=== PATIENT | female | born 1985 | race Caucasian/White ===

== ENCOUNTER 2023-02-02 03:19 | Inpatient (IN) | payer OTHER, SELFPAY ==
[2023-02-02] VITALS (61 sets, daily range): BP systolic 103–136; BP diastolic 58–91; PULSE 55–113; RESP 12–20; TEMP 35.9–36.8; O2SAT 96–100; BMI 36.3
--- NOTE | 2023-02-02 03:19 | LDADM ---
This patient, Maggie Smith, was admitted to Labor/Delivery/Recovery 120 on 02/02/23 at 03:19. Plans for labor, pain management and were discussed with patient. Patient/family oriented to hospital policies and general routines including ID bracelet, bed and alarms, visiting hours, pain management, procedures, bathroom and other care routines, personal items, smoking policy, room service/diet and guest tray routines, infant security routines, and visiting hours. Patient/Family are encouraged to report perceived risks to care and to ask questions if they do not understand what they are told or what they should do. See OBIX for further documentation.
[2023-02-02] MEDS: LACTATED RINGERS 1,000 ML 125 ML IV CONT ×2 (04:15→05:40)
[2023-02-02 04:21] LABS: Glucose Point of Care 93 mg/dl (65-105)
[2023-02-02 04:21] LABS: Basophils Absolute Auto 0.1 K/mm3 (0.0-0.1); Basophils Percent Auto 0.5 % (0.2-1.2); Eosinophils Percent Auto 0.4 % (0-4.4); Hematocrit 35.8 % (37.0-47.0); Hemoglobin 12.1 g/dL (12.0-15.0); Immature Granulocyte Absolute 0.07 K/mm3 (0.00-0.031); Immature Granulocyte Percent A 0.7 % (0-0.5); Lymphocytes Absolute Auto 2.01 K/mm3 (0.9-3.2); Lymphocytes Percent Auto 20.8 % (18.3-44.2); Mean Corpuscular HGB Conc 33.8 g/dl (32-36); Mean Corpuscular Hemoglobin 28.3 pg (26-34); Mean Corpuscular Volume 83.6 fl (80-100); Mean Platelet Volume 10.3 fl (7.4-10.4); Monocytes Absolute Auto 0.8 K/mm3 (0.1-0.6); Neutrophils Absolute Auto 6.7 K/mm3 (1.3-6.7); Neutrophils Percent Auto 69.6 % (45.5-73.1); Platelet Count Result 215 k/mm3 (150-375); Red Blood Count 4.28 M/mm3 (4.2-5.4); Red Cell Distribution Width 14.7 % (11.5-14.5); White Blood Count 9.7 K/mm3 (4.5-10.0)
--- NOTE | 2023-02-02 06:36 | WPDANESEPPF ---
Anes - Initial Pre Proc Eval Procedure: Operation Date: 02/02/23 07:30 Proposed Procedures p Section - Andi Godfrey MD Date/Time: 02/02/23 06:36 Surgeon: Andi Godfrey MD Pre Op Diagnosis: Leaking Fluid Patient Data Age: 37 Gender: F Height: 1.57 m Weight: 90 kg Last Vital Signs Temp 36.4 C L 02/02/23 04:00 Pulse 91 02/02/23 04:01 Resp 16 02/02/23 04:00 BP 133/85 02/02/23 04:01 O2 Del Method Room Air 02/02/23 04:47 Allergies Allergy/AdvReac Type Severity Reaction Status Date / Time No Known Allergies Allergy Unknown Verified 02/02/23 04:50 Home Medications Medication Instructions Recorded Confirmed Type albuterol sulfate 90 mcg/actuation 1 inh inhalation QID PRN Wheezing 01/16/23 01/16/23 History aerosol inhaler prenat.vits,gil,ffu-yzho-nbbsd 1 tablet PO DAILY 01/16/23 01/16/23 History Laboratory Tests 02/02/23 02/02/23 04:14 04:15 WBC 9.7 K/mm3 (4.5-10.0) RBC 4.28 M/mm3 (4.2-5.4) Hgb 12.1 g/dL (12.0-15.0) Hct 35.8 L % (37.0-47.0) MCV 83.6 fl (80-100) MCH 28.3 pg (26-34) MCHC 33.8 g/dl (32-36) RDW 14.7 H % (11.5-14.5) Plt Count 215 k/mm3 (150-375) MPV 10.3 fl (7.4-10.4) Immature Gran % (Auto) 0.7 H % (0-0.5) Neut % (Auto) 69.6 % (45.5-73.1) Lymph % (Auto) 20.8 % (18.3-44.2) [place] % (Auto) 8.0 % (2.6-8.5) Eos % (Auto) 0.4 % (0-4.4) Baso % (Auto) 0.5 % (0.2-1.2) Lymph # (Auto) 2.01 K/mm3 (0.9-3.2) [place] # (Auto) 0.8 H K/mm3 (0.1-0.6) Eos # (Auto) 0.0 K/mm3 (0-0.3) Baso # (Auto) 0.1 K/mm3 (0.0-0.1) Abs Immat Gran (auto) 0.07 H K/mm3 (0.00-0.031) Absolute Neuts (auto) 6.7 K/mm3 (1.3-6.7) Absolute Nucleated RBC 0.0 K/mm3 (0.0-0.012) Nucleated RBC % 0.0 % (0.0-0.2) POC Capillary Glucose 93 mg/dl (65-105) RPR Pending Blood Type A Positive Antibody Screen Negative Patient hx anesthesia problems: none Family hx anesthesia problems: none Results Review: All pre-operative results and documents have been reviewed as part of the pre-operative evaluation. [facility] Past Medical History Medical History (Updated 02/02/23 @ 06:36 by Mayco Gibson MD) Diabetes in Obesity Surgical History Surgical History (Updated 02/02/23 @ 06:36 by Mayco Gibson MD) History of section Family History Family History (Updated 01/16/23 @ 13:50 by Olivia Connor RN) Grandparent Congestive heart failure Mother Diabetes mellitus Son Sudden infant syndrome (SIDS) Social History Social History Smoking status: Former smoker Substance use: never Lack of Transportation: No Lack of Food: Never True Current Housing: I Have Housing Concerned About Future Housing: No Difficulty Paying Gas/Electric Bills: No Difficulty Paying for Meds: No Currently Unemployed: No Education: Don't Know Difficulty w/ Childcare or Family Care: No Spiritual care concerns: No Anes - Eval Final PreProcedure Day of Procedure 02/02/23 06:36 Patient weight: obese Heart: regular rate and rhythm Lungs: clear to auscultation Airway: Mallampati scale class II Neurological: alert and oriented Last oral intake: >/= 8 hours ASA classification: III Emergent: no Anesthetic plan: proceed Anesthesia type and monitoring: regional spinal and standard monitoring Results Review: All pre-operative results and documents have been reviewed as part of the pre-operative evaluation. Informed Consent: The patient's anesthetic plan and its attendant risks and benefits were discussed with the patient/family/POA. Questions were solicited and answers provided to the satisfaction of the patient/family/POA.
--- NOTE | 2023-02-02 07:24 | PM.IMHP ---
H&P: HPI History of Present Illness Date/Time: 02/02/23 07:24 Chief Complaint: Term , rupture of membranes previous Narrative: this patient is a 37-year-old grand multiparous with history of delivery. She has a 38 week gestation. She ruptured membranes early this morning and came to Labor and delivery. We have decided to proceed with . She had 4 . She understands the risk. She understands that injuries may occur that result in hospitalization, more surgery, and severe illness. She understands risk of hemorrhage and infection. Review of Systems Review of Systems: All systems reviewed & are unremarkable except as noted in HPI and below Constitutional: Constitutional: Denies chills, Denies fatigue, Denies fever(s) and Denies weakness Eyes: Eyes: Denies blurry vision, Denies change in vision, Denies loss of peripheral vision, Denies loss of vision, Denies other visual disturbances and Denies eye pain ENT: Denies vertigo, Denies dizziness, Denies hearing loss, Denies mouth pain, Denies nasal obstruction, Denies neck mass and Denies neck pain Cardiovascular: Cardiovascular: Denies chest pain, Denies diaphoresis, Denies syncope, Denies leg edema and Denies dyspnea Respiratory: Respiratory: Denies chest congestion, Denies cough, Denies hemoptysis, Denies dyspnea and Denies wheezing Gastrointestinal: Gastrointestinal: Denies abdominal pain, Denies constipation, Denies diarrhea, Denies nausea and Denies vomiting Genitourinary: Genitourinary: Denies hematuria, Denies change in libido, Denies nocturia, Denies genital lesions, Denies flank pain and Denies urinary urgency Musculoskeletal: Musculoskeletal: Denies abnormal gait, Denies back pain, Denies myalgias, Denies arthralgias, Denies joint swelling, Denies muscle weakness and Denies neck pain Integumentary/Breasts: Skin/Breast: Denies swelling, Denies breast pain, Denies breast mass, Denies dry skin, Denies nipple discharge, Denies unusual bruising and Denies jaundice Neurologic: Denies Neuro-related abnormal movements, Denies Abnormal speech present, Denies abnormal gait, Denies behavioral changes, Denies confusion, Denies vertigo, Denies dizziness, Denies syncope, Denies loss of vision, Denies memory loss, Denies convulsions and Denies weakness Psychiatric: Psychiatric: Denies abnormal sleep pattern, Denies behavioral changes, Denies change in libido, Denies confusion, Denies depression, Denies anhedonia and Denies memory loss Endocrine: Endocrine: Reports no additional endocrine complaints, Denies change in libido and Denies fatigue Hematologic/Lymphatic: Hematologic/Lymphatic: Reports no additional hematologic/lymphatic complaints Allergic/Immunologic: Allergic/Immunologic: Reports no additional allergic/immunologic complaints and Denies wheezing PMFSH Past Medical History Medical History (Updated 02/02/23 @ 07:26 by Andi Godfrey MD) Diabetes in Obesity Surgical History Surgical History (Updated 02/02/23 @ 07:26 by Andi Godfrey MD) History of section Family History Family History (Updated 01/16/23 @ 13:50 by Olivia Connor RN) Grandparent Congestive heart failure Mother Diabetes mellitus Son Sudden syndrome (SIDS) Social History Social History Smoking status: Former smoker Substance use: never Lack of Transportation: No Lack of Food: Never True Current Housing: I Have Housing Concerned About Future Housing: No Difficulty Paying Gas/Electric Bills: No Difficulty Paying for Meds: No Currently Unemployed: No Education: Don't Know Difficulty w/ Childcare or Family Care: No Spiritual care concerns: No Meds Home Medications and Allergies Home Medications Medication Instructions Recorded Confirmed Type albuterol sulfate 90 mcg/actuation 1 inh inhalation QID PRN Wheezing 01/16/23 01/16/23 Hist
[2023-02-02] MEDS: ceFAZolin 2 GM/D5W 50 ML 2 GM/50 ML BAG IVPB (07:35)
--- NOTE | 2023-02-02 08:44 | P.OP_ITS ---
Procedure Note - Detailed Date of Procedure 02/02/23 Pre-op Diagnosis Leaking Fluid, term gestation, previous Post-op Diagnosis Same Procedure Performed Low-transverse section Surgeon Andi Godfrey MD Anesthesia Spinal Indications previous , ruptured membranes, term gestation Findings Normal gestational maternal anatomy, average size , normal Apgars. Description of Procedure The patient was taken the operating room. She was prepped and draped in dorsal supine position with a leftward tilt. This was done after spinal anesthetic was applied. A low-transverse skin incision was made and carried down till of the fascia with the knife. The fascial incision was made with the knife. The fascial incision was extended laterally with Hope scissors. The fascia was tented upward superiorly and inferiorly the rectus muscles were dissected off bluntly. The rectus muscles were the midline. The preperitoneal fat and peritoneum were dissected open bluntly at the superior aspect of the rectus muscles. The peritoneal incision was extended superior and inferior with good position of bladder. The uterine incision was made with a scalpel down to the level of the amniotic cavity. The amniotic cavity was entered bluntly. The infant was delivered. The cord was clamped and cut and the infant was handed off to waiting pediatric staff. Cord bloods were ob tained. The placenta was removed manually. The uterus was exteriorized. The uterus was cleared of all clots, debris and membranes. The uterus was closed in 0 Vicryl running lock fashion. An imbricating over a was placed along the incision line as well. The uterus was returned to the abdomen. The gutters were cleared of all clots and debris. The fascia was closed with 0 Vicryl running fashion. The subcutaneous tissue was irrigated pinpoint bleeders were cauterized. The skin was closed with subcuticular absorbable eduardo. The skin incision line was covered with glue. The patient tolerated the procedure well. She has taken recovery room in stable condition. Sponge lap and needle counts were correct x2. Pathology None sent Complications No immediate complications Condition Stable Disposition PACU
[2023-02-02] MEDS: KETOROLAC 30 MG/ML VIAL (*BKC) IV PUSH (08:45)
[2023-02-02 10:05] LABS: Rapid Plasma Reagin Non-Reactive (NonReactive)
[2023-02-02] MEDS: OXYTOCIN 30 UNITS/NS 500 ML 30 UNITS/500 ML BAG 125 UNITS IV CONT (10:42)
--- NOTE | 2023-02-02 16:06 | OBPPTRN ---
1123 Patient transferred to post room #290 via stretcher. Support person present. Oriented to unit, room, information board, rooming in, admission packet and security measures. Patient verbalizes understanding.
--- NOTE | 2023-02-02 18:32 | PC.NURSE ---
Disregard [id number] charting it was for the wrong time. the correct charting time is 7819
[2023-02-02] MEDS: DOCUSATE SODIUM 100 MG CAPSULE PO (19:46)
[2023-02-03 04:15] VITALS: BP 121/69; PULSE 95; RESP 18; TEMP 37.4; O2SAT 98
[2023-02-03 05:22] LABS: Basophils Absolute Auto 0.1 K/mm3 (0.0-0.1); Basophils Percent Auto 0.5 % (0.2-1.2); Eosinophils Absolute Auto 0.1 K/mm3 (0-0.3); Eosinophils Percent Auto 0.8 % (0-4.4); Hematocrit 29.9 % (37.0-47.0); Hemoglobin 10.1 g/dL (12.0-15.0); Immature Granulocyte Absolute 0.06 K/mm3 (0.00-0.031); Immature Granulocyte Percent A 0.6 % (0-0.5); Lymphocytes Absolute Auto 1.65 K/mm3 (0.9-3.2); Lymphocytes Percent Auto 15.9 % (18.3-44.2); Mean Corpuscular HGB Conc 33.8 g/dl (32-36); Mean Corpuscular Hemoglobin 28.5 pg (26-34); Mean Corpuscular Volume 84.2 fl (80-100); Mean Platelet Volume 10.6 fl (7.4-10.4); Monocytes Absolute Auto 0.9 K/mm3 (0.1-0.6); Monocytes Percent Auto 8.9 % (2.6-8.5); Neutrophils Absolute Auto 7.6 K/mm3 (1.3-6.7); Neutrophils Percent Auto 73.3 % (45.5-73.1); Platelet Count Result 182 k/mm3 (150-375); Red Blood Count 3.55 M/mm3 (4.2-5.4); Red Cell Distribution Width 14.8 % (11.5-14.5); White Blood Count 10.4 K/mm3 (4.5-10.0)
--- NOTE | 2023-02-03 07:48 | WPDANLDNPN2 ---
Anes-Prog Note L&D-Neuraxial Date/Time: 02/03/23 07:48 Neuraxial medications: epidural PF morphine Opiod-related complaints: none Patient feedback: Patient satisfied with post-operative pain management.
--- NOTE | 2023-02-03 07:48 | WPDANLDPN2 ---
Anes-Prog Note L&D Date/Time: 02/03/23 07:48 Comfortable throughout: section Neuraxial method: spinal Epidural/Spinal procedure site: clean & non-tender Neuro status: Neuro function grossly intact. Cardiovascular status: normal Respiratory status: normal Airway patency: baseline Mental status: baseline Post-Op hydration status: normal Vital Signs: Last Vital Signs Temp 99.4 F 02/03/23 04:15 Pulse 95 02/03/23 04:15 Resp 18 02/03/23 04:15 BP 121/69 02/03/23 04:15 Pulse Ox 98 02/03/23 04:15 O2 Del Method Room Air 02/03/23 04:15 Pain score (VAS): 4 I/O: Intake & Output 02/02/23 02/02/23 02/03/23 15:59 23:59 07:59 Intake Total 1700 1540 800 Output Total 1310 1400 1700 Balance 390 140 -900 Post-procedural complaints: none Patient feedback: Patient satisfied with anesthetic care.
[2023-02-03 08:00] VITALS: BP 111/74; PULSE 90; RESP 16; TEMP 37.2; O2SAT 99
[2023-02-03] MEDS: DOCUSATE SODIUM 100 MG CAPSULE PO ×2 (08:34→17:01)
[2023-02-03] MEDS: IBUPROFEN 600 MG TABLET PO ×2 (08:35→17:02)
[2023-02-03] MEDS: MULTIVIT/MIN/PREN/FOL AC/IRON TABLET 1 TAB PO (08:35)
--- NOTE | 2023-02-03 09:18 | PM.GYNPNOP ---
NEW GRAD RN - A/P Postoperative Procedures: Procedures Operation Date: 02/02/23 07:30 Actual Procedure Side Surgeon p Section Andi Godfrey MD Time Spent With Patient Time: Total time spent is greater than 50% in coordination of care (as documented) at patient's floor/unit and/or counseling patient: Time with patient: less than 15 minutes NEW GRAD RN- PN:Felix Post-Op Subjective Date/time seen: 02/03/23 09:18 Exam Const: General: cooperative, healthy appearing, comfortable and no acute distress Resp: Auscultation: no crackles, no rales, no rhonchi and no wheezes Cardio: Rhythm: regular rhythm Heart sounds: no click and no murmurs GI: Inspection: non-distended Auscultation: normal bowel sounds Extrem: General: normal to inspection, no pedal edema and no calf tenderness NEW GRAD RN - PN: Obj Data Vital Signs Vital Signs: Vital Signs - 24 hr 02/02/23 09:20 02/02/23 09:25 02/02/23 09:30 Temperature Pulse Rate Respiratory Rate Blood Pressure Pulse Oximetry 100 100 100 Oxygen Delivery 02/02/23 09:32 02/02/23 09:35 02/02/23 09:40 Temperature Pulse Rate 82 Respiratory Rate Blood Pressure 122/59 L Pulse Oximetry 100 100 Oxygen Delivery 02/02/23 09:45 02/02/23 09:47 02/02/23 09:50 Temperature Pulse Rate 113 H Respiratory Rate Blood Pressure 119/78 Pulse Oximetry 100 100 Oxygen Delivery 02/02/23 09:55 02/02/23 10:00 02/02/23 10:05 Temperature Pulse Rate Respiratory Rate Blood Pressure Pulse Oximetry 100 100 100 Oxygen Delivery 02/02/23 10:10 02/02/23 10:15 02/02/23 10:16 Temperature Pulse Rate 79 Respiratory Rate Blood Pressure 117/67 Pulse Oximetry 99 100 Oxygen Delivery 02/02/23 10:18 02/02/23 10:20 02/02/23 10:25 Temperature Pulse Rate 75 Respiratory Rate Blood Pressure 118/74 Pulse Oximetry 100 100 Oxygen Delivery 02/02/23 10:30 02/02/23 10:31 02/02/23 10:35 Temperature Pulse Rate 70 Respiratory Rate Blood Pressure 110/73 Pulse Oximetry 100 100 Oxygen Delivery 02/02/23 10:40 02/02/23 10:45 02/02/23 10:46 Temperature Pulse Rate 87 Respiratory Rate Blood Pressure 109/91 H Pulse Oximetry 100 99 Oxygen Delivery 02/02/23 10:50 02/02/23 10:55 02/02/23 11:00 Temperature Pulse Rate Respiratory Rate Blood Pressure Pulse Oximetry 100 100 100 Oxygen Delivery 02/02/23 11:02 02/02/23 11:05 02/02/23 11:10 Temperature Pulse Rate 69 Respiratory Rate Blood Pressure 118/76 Pulse Oximetry 100 100 Oxygen Delivery 02/02/23 11:15 02/02/23 11:16 02/02/23 09:19 Temperature 96.9 F L Pulse Rate 57 L 88 Respiratory Rate 20 Blood Pressure 115/68 136/91 H Pulse Oximetry 100 100 Oxygen Delivery Room Air 02/02/23 09:34 02/02/23 09:49 02/02/23 10:04 Temperature 97.2 F L 97.5 F L Pulse Rate 85 81 80 Respiratory Rate 14 17 14 Blood Pressure 122/59 L 122/59 L Pulse Oximetry 100 100 100 Oxygen Delivery Room Air Room Air Room Air 02/02/23 10:19 02/02/23 10:34 02/02/23 10:49 Temperature 97.6 F 97.1 F L Pulse Rate 85 85 81 Respiratory Rate 12 12 Blood Pressure Pulse Oximetry 100 100 100 Oxygen Delivery Room Air Room Air Room Air 02/02/23 11:45 02/02/23 16:32 02/02/23 17:40 Temperature 98.2 F Pulse Rate 58 L Respiratory Rate 16 Blood Pressure 109/75 Pulse Oximetry 99 Oxygen Delivery Room Air Room Air 02/02/23 11:23 02/02/23 20:07 02/02/23 20:07 Temperature 97.6 F Pulse Rate 58 L 88 88 Respiratory Rate 16 18 18 Blood Pressure 114/73 Pulse Oximetry 99 97 97 Oxygen Delivery Room Air Room Air 02/02/23 23:13 02/02/23 23:13 02/03/23 04:15 Temperature 98.3 F Pulse Rate 93 93 95 Respiratory Rate 18 18 18 Blood Pressure 108/61 Pulse Oximetry 96 96 98 Oxygen Delivery Room Air Room Air 02/03/23 04:15 02/03/23 08:00 Temperature 99.4 F 99 F Pulse Rate 9
--- NOTE | 2023-02-03 12:44 | PC.NURSE ---
[id number] Introductions were made, then consulted with patient to assess needs related to . Mother led the conversation with her?plans to feed?her infant and the?experience so far. Resources provided for inpatient services with name written on the white board and using call light. RN encouraged mother to eat her lunch, then unwrap her infant and place upright skin -to-skin. Mother voiced understanding of information and voiced she would call.
--- NOTE | 2023-02-03 14:27 | PC.NURSE ---
[id number] Consulted with patient to assess needs related to after a call requested. Mother led the conversation with her?plans to feed?her infant and the?experience so far. Mother works well with her infant with encouragement and education. Encouraged understanding of the benefits of skin to skin (demonstrating unwrapping and placing upright on her chest), stimulating with massage touch, changing positions to encourage wakefulness, how to watch for early feeding cues, responsive feeding, feeding on demand (aiming for 8-12 times in 24 hours, about every 2-3 hours), milk production, building/maintaining a milk supply, duration of feeding, signs of adequate intake/output and how to record on the feeding sheet. Reviewed positioning and ear, shoulder, hip alignment, supporting the breast to facilitate a deep latch, asymmetrical latch (off-center), leading with the chin with a big, open, wide gape and body close to mother. latched optimally to the left breast in football position. Education given to mother of how to visualize suck/swallow ratios and listen for drinking at the breast. Infant was able to maintain latch without discomfort to mother for a few minutes, then would fall asleep. After stimulating to wake and feeding cues visualized infant was relatched to the breast. Reviewed with mother the signs of an effective latch, how to detach if latch is not optimal, and encourage active . Nipple care reviewed with optimal latch and good positioning. Reminding mother of comfort measures of healing with a warm and wet washcloth to rinse breast, then leave open to air-dry as needed. Reviewed good handwashing when or touching the breast/nipples to prevent infection. Resources used to facilitate learning were used with the tool. Mother voiced understanding of skin to skin, stimulating with massage touch, responsive feedings, talking to to encourage if it has been 2 -2.5 hours since the start of the last , to call if does not latch, or if there is discomfort with . Resources provided for inpatient/outpatient with feeding sheet, name on the white board and the mom/baby guide. Mother voiced understanding of information, demonstrated learning and will call if there is a request for assistance. Reported to primary RN.
[2023-02-03] MEDS: HYDROcodone/acetaminophen (*CRX) 10-325 MG TABLET 1 TAB PO (17:09)
[2023-02-03 20:40] VITALS: BP 124/79; PULSE 91; RESP 20; TEMP 36.4
--- NOTE | 2023-02-04 08:00 | PC.NURSE ---
PT introductions made and plan of care discussed per post , pain management, breast feeding and bottle feeding, pending discharge to home, daily care activities. PT and spouse both recipients of such care and no barriers to learning identified at this time. Pt received such instructions per one to one discussion , mom baby care guide and demonstrations this shift. PT verbalized understanding of such care.
--- NOTE | 2023-02-04 08:12 | PM.OBPNVD ---
OB - PN: Subj Subjective Date/time seen: 02/04/23 08:12 post op section day 2, pt wanting discharge, baby breast/bottle feeding, flatus present, pain controlled with medication OB - PN: Obj Data Labs 02/03/23 04:12 OB - PN A/P Plan day: 2 Plan: routine care and discharge home Time Spent With Patient Time: Total time spent is greater than 50% in coordination of care (as documented) at patient's floor/unit and/or counseling patient: Review of Systems Review of Systems: All systems reviewed & are unremarkable except as noted in HPI and below Exam Const: General: cooperative and healthy appearing Chest: Chest palpation & inspection: normal inspection of the chest Resp: Effort & Inspection: normal respiratory effort GI: Other: Incision CDI Skin: General skin exam: normal color Neuro: General: oriented to person Extrem: Right lower extremity: normal to inspection Left lower extremity: normal to inspection
--- NOTE | 2023-02-04 08:16 | PM.OBDSVD ---
DS: Admitting Diagnosis Discharge Date 02/04/23 Admitting Diagnosis SROM, rpt section OB - DS: Summary OB Procedures : None OB Procedures Intrapartum: OB Procedures: : None Peripartum Data Procedures: Procedures Operation Date: 02/02/23 07:30 Actual Procedure Side Surgeon p Section Andi Godfrey MD Time Spent with Patient Time attestation: Total time spent providing and/or coordinating discharge services: Discharge Plan Discharge Attending physician on discharge: Andi Godfrey Discharging Clinician: Amy Acosta Patient Disposition: Home, Self-Care Activity: pelvic rest Diet: regular Discharge Instructions: Education: Mom and Baby Guide Given to: Mother Follow-Up: Call your delivering provider's office for an appointment to be seen in: 1 Week Mom and baby should come to the [facility] for the follow-up appointment. Appointment Date/Time: February 05, 2023 at 8:00 am What to expect at your follow-up visit: Blood Pressure Check Call [phone] if you are unable to keep your appointment time. BREAST CARE: * Wear a snug supportive bra. * For engorgement discomfort: Breast Feeding: * Apply warm moist washcloths * Express milk as needed to relieve engorgement * Wear loose clothing Bottle Feeding: * May apply ice packs * For sore nipples: * Identify correct latch-on * Apply warm moist washcloths before and after nursing * Air dry nipples after nursing * May apply Lansinoh cream to nipples ABDOMINAL INCISION: (if applicable) * Allow incision to air dry * Do NOT use lotions for powders on your incision * When showering, allow soap and water to run over the incision, but do not wash incision PERINEAL CARE: * Until bleeding stops, use your sherrell bottle after urinating * Change your pad frequently throughout the day * No tub baths until seen by your physician - You may shower ACTIVITY: * Rest as much as possible. * Do not exercise or lift anything heavier than your baby (such as laundry or other children.) * Avoid stairs or driving as much as possible. * Do not put anything into the vagina. No douching, tampons, or sexual activity until seen by physician. NOTIFY PHYSICIAN IF YOU HAVE ANY QUESTIONS OR IF ANY OF THE FOLLOWING SYMPTOMS OCCUR: * If your incision becomes red, swollen, or more painful than what you have experienced in the hospital. * If your vaginal bleeding becomes foul smelling. * If your vaginal bleeding becomes more heavy than a period or if your bleeding changes from pink to bright red. However, you may pass an occasional walnut-sized clot once or twice for the first week . * If you experience a sharp, shooting pain in you calves. * If you discover a hard, reddened area on your breast or if you experience flu-like symptoms. * If you have a fever of 100.4 or greater DIET: * Eat regular, well-balanced meals. * Drink plenty of fluids daily. If , drink to thirst. Patient Instructions: Antibiotic Form Stand Alone Forms: General Discharge Information Follow-up/Referrals: Andi Godfrey MD [Physician] - 1 Week Discharge Medications: New hydrocodone-acetaminophen 5-325 mg Tablet 1 tablet PO Q3H PRN (Reason: Moderate Pain (4-6)) Qty: 20 0RF ibuprofen 600 mg Tablet 600 mg PO Q6H PRN (Reason: Cramping) Qty: 30 0RF Continued #2 Tablet 1 tablet PO DAILY albuterol sulfate 90 mcg/actuation Hfa Aerosol Inhaler 1 inh INHALATION QID PRN (Reason: Wheezing) Date of admission: 02/02/23 03:19 Primary Care Provider: Marshall Doherty MD Admitting Provider: Andi Godfrey Attending physician on admission: Andi Godfrey Condition: Stable
[2023-02-04 08:23] VITALS: PULSE 79; RESP 16; O2SAT 99
[2023-02-04] MEDS: MULTIVIT/MIN/PREN/FOL AC/IRON TABLET 1 TAB PO (08:23)
[2023-02-04] MEDS: DOCUSATE SODIUM 100 MG CAPSULE PO (08:23)
[2023-02-04] MEDS: IBUPROFEN 600 MG TABLET PO (08:23)
[2023-02-04 08:25] VITALS: BP 120/69; PULSE 79; RESP 16; TEMP 37.2; O2SAT 99
[2023-02-04] MEDS: HYDROcodone/acetaminophen (*CRX) 5-325 MG TABLET 1 TAB PO ×2 (08:27→12:56)
--- NOTE | 2023-02-04 09:54 | PC.NURSE ---
[id number] Mother led the conversation with her experience and plan to feed her so far and her ability to feed her infant independently using a combo feeding plan. Reminded parents to use good handwashing technique to prevent infection. Mother is feeding appropriately for growth of and understands stimulating infant to eat if needed. Infant has had appropriate feedings in the last 24 hours meets the outcomes for weight, output and jaundice at this time. Mother states she is confident to continue feeding her at home, when to call for assistance and denies any additional assistance or education at this time. Reinforced understanding of milk production, transition of milk, signs of adequate intake, transition of stool, prevention/relief of engorgement, responsive watching for feeding cues, the different methods of stimulating to breastfeed 2-3 hours after the start of the last feeding, community resources, medication information reviewed per [facility] and when to call a provider using the resource of the mom and baby guide. Mother voiced understanding of the education shared. Mother received offer of an insurance pump to take home to protect her milk supply. Reported to the primary RN.
--- NOTE | 2023-02-04 10:13 | PC.NURSE ---
[id number] Instructions given on cleaning, care, usage, that there should be no pain, pumping schedule for milk production, collection, frequency, and storage of human milk. Parents are encouraged to record pumping schedule. Patient was assessed for correct placement, flange size, to pump for comfort and nipple stretching/stimulation for adequate milk production every 3 hours (8 times in 24 hours) 1-2 times at night. Mother voiced understanding of the education shared along with mom and baby guide and business card for additional resource information. Reported to the primary RN.
[2023-02-04] MEDS: SIMETHICONE 80 MG TAB.CHEW PO (12:57)
--- NOTE | 2023-02-04 13:36 | PC.NURSE ---
Pt discharged to home ambulatory accompanied by spouse and and taken to waiting car. Follow up appts confirmed
--- NOTE | 2023-02-04 15:16 | PC.NURSE ---
Paper documentation exists on this patient due to [employer] System downtime on 02/03/23 from 1900 to 0700 .
--- NOTE | 2023-02-05 17:47 | PM.OBDSVD ---
DS: Admitting Diagnosis Discharge Date 02/04/23 Admitting Diagnosis rpt DS: Discharge Diagnosis Discharge Diagnosis (1) Previous delivery, delivered: Code(s): O34.219 - Maternal care for unspecified type scar from previous delivery Status: Acute OB - DS: Summary OB Procedures : None OB Procedures Intrapartum: OB Procedures: : None Peripartum Data Procedures: Procedures Operation Date: 02/02/23 07:30 Actual Procedure Side Surgeon p Section Andi Godfrey MD Time Spent with Patient Time attestation: Total time spent providing and/or coordinating discharge services: Discharge Plan Discharge Attending physician on discharge: Andi Godfrey Consulting providers: Pam Syed; Mayco Gibson Discharging Clinician: Amy Acosta Patient Disposition: Home, Self-Care Activity: pelvic rest Diet: regular Discharge Instructions: Education: Mom and Baby Guide Given to: Mother Follow-Up: Call your delivering provider's office for an appointment to be seen in: 1 Week Mom and baby should come to the [facility] for the follow-up appointment. Appointment Date/Time: February 05, 2023 at 8:00 am What to expect at your follow-up visit: Blood Pressure Check Call [phone] if you are unable to keep your appointment time. BREAST CARE: * Wear a snug supportive bra. * For engorgement discomfort: Breast Feeding: * Apply warm moist washcloths * Express milk as needed to relieve engorgement * Wear loose clothing Bottle Feeding: * May apply ice packs * For sore nipples: * Identify correct latch-on * Apply warm moist washcloths before and after nursing * Air dry nipples after nursing * May apply Lansinoh cream to nipples ABDOMINAL INCISION: (if applicable) * Allow incision to air dry * Do NOT use lotions for powders on your incision * When showering, allow soap and water to run over the incision, but do not wash incision PERINEAL CARE: * Until bleeding stops, use your sherrell bottle after urinating * Change your pad frequently throughout the day * No tub baths until seen by your physician - You may shower ACTIVITY: * Rest as much as possible. * Do not exercise or lift anything heavier than your baby (such as laundry or other children.) * Avoid stairs or driving as much as possible. * Do not put anything into the vagina. No douching, tampons, or sexual activity until seen by physician. NOTIFY PHYSICIAN IF YOU HAVE ANY QUESTIONS OR IF ANY OF THE FOLLOWING SYMPTOMS OCCUR: * If your incision becomes red, swollen, or more painful than what you have experienced in the hospital. * If your vaginal bleeding becomes foul smelling. * If your vaginal bleeding becomes more heavy than a period or if your bleeding changes from pink to bright red. However, you may pass an occasional walnut-sized clot once or twice for the first week . * If you experience a sharp, shooting pain in you calves. * If you discover a hard, reddened area on your breast or if you experience flu-like symptoms. * If you have a fever of 100.4 or greater DIET: * Eat regular, well-balanced meals. * Drink plenty of fluids daily. If , drink to thirst. Patient Instructions: Antibiotic Form Stand Alone Forms: General Discharge Information Follow-up/Referrals: Andi Godfrey MD [Physician] - 1 Week Discharge Medications: New hydrocodone-acetaminophen 5-325 mg Tablet 1 tablet PO Q3H PRN (Reason: Moderate Pain (4-6)) Qty: 20 0RF ibuprofen 600 mg Tablet 600 mg PO Q6H PRN (Reason: Cramping) Qty: 30 0RF Continued prenat.vits,gil,[id number] Tablet 1 tablet PO DAILY albuterol sulfate 90 mcg/actuation Hfa Aerosol Inhaler 1 inh INHALATION QID PRN (Reason: Wheezing) Date of admission:
[2023-02-06 09:38] VITALS: BP 130/81; PULSE 75; RESP 18; TEMP 37.1; O2SAT 100
== END 2023-02-04 13:36 | disposition home or self-care (01) | DRG 788 ==
LOC: ANHLDR 04:42 → ANHOB2 02-03 15:16 → ANHLDR 02-05 09:46 → ANHOB2 02-05 09:46
PROVIDERS: Admitting Provider Obstetrics & Gynecology; Visit Provider Advanced Practice Midwife
PROC: (CPT 59514; principal; 2023-02-05 07:30)
DX: O34.211 Maternal care for low transverse scar from previous cesarean delivery (principal); Z37.0 Single live birth; Z3A.38 38 weeks gestation of pregnancy; O24.429 Gestational diabetes mellitus in childbirth, unspecified control; O99.824 Streptococcus B carrier state complicating childbirth; O69.81X0 Labor and delivery complicated by cord around neck, without compression, not applicable or unspecified
CPT/HCPCS: 36415; 82948; 85025; 86592; 86850; 86900; 86901; A9270; J0131; J0456; J0690; J1885; J2274; J2590; J7120